=== PATIENT | male | born 1940 | race Caucasian/White ===

== ENCOUNTER 2020-05-08 10:46 | Inpatient (IN) | payer MEDICARE ==
[~2020-05-08] VITALS: Ht 170.2 cm; Wt 90.3 kg
[2020-05-08] MEDS ORDERED: VITAMIN D325 MCG PO (14:32)
[2020-05-08] MEDS ORDERED: ZYLOPRIM 300 M300 MG PO (14:32)
[2020-05-08] MEDS ORDERED: TYLENOL325 MG PO (14:32)
[2020-05-08 14:33] LABS: HEMOGLOBIN 16.3 gm/dl (14.0-17.5); RED BLOOD COUNT 4.69 M/UL (4.20-5.50); WHITE BLOOD COUNT 24.9 K/UL (4.5-11.0)
[2020-05-08] MEDS ORDERED: DOK100 MG PO (14:33)
[2020-05-08] MEDS ORDERED: AMLODIPINE BESY10 MG PO (14:33)
[2020-05-08] MEDS ORDERED: ADULT LOW DOSE81 MG PO (14:33)
[2020-05-08] MEDS ORDERED: HYDROCODON-ACE1 EAC4 PO (14:34)
[2020-05-08] MEDS ORDERED: LIPITOR80 MG PO (14:34)
[2020-05-08] MEDS ORDERED: OMEPRAZOLE40 MG PO (14:34)
[2020-05-08] MEDS ORDERED: FLONASE 0.05% N16 GM (14:34)
[2020-05-08] MEDS ORDERED: VITAMIN B-121000 MC3 PO (14:35)
[2020-05-08] MEDS ORDERED: ARICEPT5 MG PO (14:35)
[2020-05-08] MEDS ORDERED: PLAVIX75 MG PO (14:35)
[2020-05-08] MEDS ORDERED: ZYRTEC10 MG PO (14:35)
[2020-05-08] MEDS ORDERED: LEXAPRO5 MG PO (14:36)
[2020-05-08] MEDS ORDERED: LASIX20 MG PO (14:36)
[2020-05-08] MEDS ORDERED: MIRALAX17 GM PO (14:37)
[2020-05-08] MEDS ORDERED: COZAAR100 MG PO (14:37)
[2020-05-08] MEDS ORDERED: K-DUR TAB 20 M20 MEQ PO (14:38)
[2020-05-08] MEDS ORDERED: COREG6.25 MG PO (14:38)
[2020-05-09 04:23] LABS: HEMOGLOBIN 15.4 gm/dl (14.0-17.5); RED BLOOD COUNT 4.45 M/UL (4.20-5.50)
[2020-05-09 04:30] LABS: WHITE BLOOD COUNT 35.5 K/UL (4.5-11.0)
[2020-05-09 09:16] LABS: HBSAG SCREEN Negative (Negative); HEP A AB, IGM Negative (Negative); HEP B CORE AB, IGM Negative (Negative); HEP C VIRUS AB <0.1 (0.0-0.9)
[2020-05-09 12:28] LABS: ADENOVIRUS F 40/41 Not Detected (Negative); ASTROVIRUS Not Detected (Negative); CAMPYLOBACTER Not Detected (Negative); CLOSTRIDIUM DIFFICILE TOX A/B Not Detected (Negative); CRYPTOSPORIDIUM Not Detected (Negative); E.COLI 0157 Not Detected (Negative); ENTAMOEBA HISTOLYTICA Not Detected (Negative); ENTEROAGGREGATIVE E.COLI (EAEC Not Detected (Negative); ENTEROPATHOGENIC E.COLI (EPEC) Not Detected (Negative); ENTEROTOXIGENIC E.COLI (ETEC) Not Detected (Negative); GIARDIA LAMBLIA Not Detected (Negative); NOROVIRUS GI/GII Not Detected (Negative); PLESIOMONAS SHIGELLOIDES Not Detected (Negative); ROTOVIRUS A Not Detected (Negative); SALMONELLA Not Detected (Negative); SAPOVIRUS Not Detected (Negative); SHIG/ENTEROINVAS.ECOLI (EIEC) Not Detected (Negative); SHIGA-LIK TOX.PRO.E.COLI (STEC Not Detected (Negative); VIBRIO Not Detected (Negative); VIBRIO CHOLERAE Not Detected (Negative); YERSINIA ENTEROCOLITICA Not Detected (Negative)
[2020-05-10 05:37] LABS: WHITE BLOOD COUNT 29.7 K/UL (4.5-11.0)
[2020-05-10 05:38] LABS: HEMOGLOBIN 12.4 gm/dl (14.0-17.5); RED BLOOD COUNT 3.63 M/UL (4.20-5.50)
[2020-05-11 09:20] LABS: HEMOGLOBIN 10.9 gm/dl (14.0-17.5)
[2020-05-11 09:32] LABS: RED BLOOD COUNT 3.22 M/UL (4.20-5.50); WHITE BLOOD COUNT 18.2 K/UL (4.5-11.0)
[2020-05-11 16:00] LABS: CRYPTOCOCCUS NEOFORMANS/GATTII Not Detected (Negative); CYTOMEGALOVIRUS Not Detected (Negative); ENTEROVIRUS Not Detected (Negative); ESCHERICHIA COLI K1 Not Detected (Negative); HAEMOPHILUS INFLUENZAE Not Detected (Negative); HERPES SIMPLEX VIRUS 1 Not Detected (Negative); HERPES SIMPLEX VIRUS 2 Not Detected (Negative); HUMAN HERPESVIRUS 6 Not Detected (Negative); HUMAN PARECHOVIRUS Not Detected (Negative); LISTERIA MONOCYTOGENES Not Detected (Negative); NEISERRIA MENINGITIDIS Not Detected (Negative); STREPTOCOCCUS AGALACTIAE Not Detected (Negative); STREPTOCOCCUS PNEUMONIAE Not Detected (Negative); VARICELLA ZOSTER VIRUS Not Detected (Negative)
[2020-05-11 16:38] LABS: GLUCOSE,CSF 85 mg/dL (50-80); TOTAL PROTEIN,CSF 37 mg/dL (20-45)
[2020-05-11 16:41] LABS: RBC (AUTOMATED) 0 10^6 (0); WBC (AUTOMATED 5 10^3 (0-5)
[2020-05-12 04:25] LABS: HEMOGLOBIN 9.6 gm/dl (14.0-17.5); WHITE BLOOD COUNT 20.8 K/UL (4.5-11.0)
[2020-05-12 04:45] LABS: RED BLOOD COUNT 2.82 M/UL (4.20-5.50)
[2020-05-12 08:12] LABS: RPR Non Reactive (Non Reactive)
[2020-05-13 03:20] LABS: HEMOGLOBIN 8.7 gm/dl (14.0-17.5); RED BLOOD COUNT 2.58 M/UL (4.20-5.50); WHITE BLOOD COUNT 16.1 K/UL (4.5-11.0)
[2020-05-14 05:55] LABS: HEMOGLOBIN 7.9 gm/dl (14.0-17.5)
[2020-05-14 05:59] LABS: RED BLOOD COUNT 2.3 M/UL (4.20-5.50); WHITE BLOOD COUNT 9.3 K/UL (4.5-11.0)
[2020-05-15 03:31] LABS: HEMOGLOBIN 7.5 gm/dl (14.0-17.5); RED BLOOD COUNT 2.22 M/UL (4.20-5.50); WHITE BLOOD COUNT 8.2 K/UL (4.5-11.0)
[2020-05-16 03:35] LABS: HEMOGLOBIN 7.8 gm/dl (14.0-17.5); RED BLOOD COUNT 2.3 M/UL (4.20-5.50)
[2020-05-16 03:45] LABS: WHITE BLOOD COUNT 10.5 K/UL (4.5-11.0)
[2020-05-16 05:11] LABS: (LD) FRACTION 1 13 % (17-32); (LD) FRACTION 2 25 % (25-40); (LD) FRACTION 3 19 % (17-27); (LD) FRACTION 4 10 % (5-13); (LD) FRACTION 5 33 % (4-20); CK-BB 0 % (0); CK-MB 0 % (0-3); CK-MM 100 % (97-100); LDH 279 IU/L (121-224); MACRO TYPE 1 0 % (Not Observed); MACRO TYPE 2 0 % (Not Observed)
[2020-05-17 03:37] LABS: HEMOGLOBIN 7.5 gm/dl (14.0-17.5); RED BLOOD COUNT 2.24 M/UL (4.20-5.50); WHITE BLOOD COUNT 8.7 K/UL (4.5-11.0)
[2020-05-18 04:16] LABS: HEMOGLOBIN 7.6 gm/dl (14.0-17.5); RED BLOOD COUNT 2.25 M/UL (4.20-5.50); WHITE BLOOD COUNT 8.8 K/UL (4.5-11.0)
[2020-05-23] MEDS ORDERED: ATIVAN2 MG PO (12:10)
[2020-05-23] MEDS ORDERED: DURAGESIC1 EAC1 TD (12:10)
== END 2020-05-23 17:36 | DRG 682 ==
LOC: MED SURG 4 12:44
PROVIDERS: Internal Medicine; Internal Medicine Nephrology; ADMIT Family Medicine
PROC: 009U3ZX Drainage of Spinal Canal, Percutaneous Approach, Diagnostic (ICD-10-PCS; 2020-05-11)
PROC: B01B1ZZ Fluoroscopy of Spinal Cord using Low Osmolar Contrast (ICD-10-PCS; 2020-05-11)
PROC: 0DH67UZ Insertion of Feeding Device into Stomach, Via Natural or Artificial Opening (ICD-10-PCS; principal; 2020-05-13)
DX: N17.9 Acute kidney failure, unspecified (principal); G93.41 Metabolic encephalopathy; E87.2 Acidosis; I25.810 Atherosclerosis of coronary artery bypass graft(s) without angina pectoris; E44.0 Moderate protein-calorie malnutrition; I13.0 Hypertensive heart and chronic kidney disease with heart failure and stage 1 through stage 4 chronic kidney disease, or unspecified chronic kidney disease; E87.0 Hyperosmolality and hypernatremia; Z66 Do not resuscitate; Z51.5 Encounter for palliative care; Z20.822 Contact with and (suspected) exposure to COVID-19; G93.89 Other specified disorders of brain; E86.0 Dehydration; R13.10 Dysphagia, unspecified; E87.6 Hypokalemia; N18.30 Chronic kidney disease, stage 3 unspecified; I25.10 Atherosclerotic heart disease of native coronary artery without angina pectoris; F02.80 Dementia in other diseases classified elsewhere, unspecified severity, without behavioral disturbance, psychotic disturbance, mood disturbance, and anxiety; I50.9 Heart failure, unspecified; R19.7 Diarrhea, unspecified; D72.829 Elevated white blood cell count, unspecified; F03.90 Unspecified dementia, unspecified severity, without behavioral disturbance, psychotic disturbance, mood disturbance, and anxiety; G20 Parkinson's disease; I69.391 Dysphagia following cerebral infarction; Z95.1 Presence of aortocoronary bypass graft; Z68.24 Body mass index [BMI] 24.0-24.9, adult
CPT/HCPCS: 36415; 70450; 70551; 71045; 74018; 80048; 80053; 80074; 80202; 81001; 82436; 82550; 82552; 82607; 82746; 82803; 82945; 82962; 83605; 83615; 83625; 83735; 83935; 84100; 84133; 84157; 84295; 84300; 84439; 84443; 85025; 85027; 85610; 86592; 87040; 87070; 87205; 87210; 87252; 87483; 87507; 89050; 89051; 93005; 94760; A6212; C9113; J0696; J1644; J2060; J2270; J2543; J3370; J3480; J7030; J7070; P9047; U0002